=== PATIENT | male | born 1960 | race African-American/Black ===

== ENCOUNTER 2024-11-16 15:06 | Emergency (ER) | payer MEDICARE | END 2024-11-16 15:53 | disposition home or self-care (01) | LOC: BURERS 15:06 | DX: S40.022A Contusion of left upper arm, initial encounter (principal); F41.9 Anxiety disorder, unspecified; I10 Essential (primary) hypertension; G20.A1 Parkinson's disease without dyskinesia, without mention of fluctuations; F17.210 Nicotine dependence, cigarettes, uncomplicated; Y04.1XXA Assault by human bite, initial encounter; Z79.899 Other long term (current) drug therapy | CPT/HCPCS: 99283 ==